=== PATIENT | male | born 1980 | race Asian ===

== ENCOUNTER 2022-12-10 08:39 | Emergency (ER) | payer OTHER, SELFPAY ==
--- NOTE | ~2022-12-10 | XR_ITS ---
EXAMINATION: XR WRIST, LEFT CLINICAL INFORMATION: Injury to left breast COMPARISON: None available. TECHNIQUE: PA, lateral, and oblique views of the left wrist. FINDINGS: The bones are intact. No fracture. Alignment is anatomic with normal joint spaces. No erosions or abnormal soft tissue calcifications. XR/XR wrist LT min 3V IMPRESSION: No acute bony abnormality.
[2022-12-10 08:44] VITALS: BP 135/87; PULSE 74; RESP 16; TEMP 36.1; O2SAT 97; BMI 29.0
--- NOTE | 2022-12-10 09:28 | ED.EXTPRO ---
HPI - Extremity Problem General Chief complaint: Extremity Injury, Upper Stated complaint: ? broken wrist Time Seen by Provider: 12/10/22 09:18 Source: patient and RN notes reviewed Mode of arrival: ambulatory Limitations: no limitations History of Present Illness HPI Narrative: This is a 42-year-old male, with no known past medical history, presenting to emergency department for evaluation of left wrist pain x3 weeks. Patient denies any recent trauma or injury however has noticed increasing pain and some numbness and tingling into his right thumb and right 2nd finger. Patient reports that over the weekend he felt a snapping sensation while he was asleep which woke him up and has had worsening pain in his left breast. He has been using a wrist splint which has been providing him with some relief. Denies history of similar symptoms in the past. No numbness or tingling going up into his left arm. 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 No other complaints or concerns at this time. MD Complaint: extremity pain and extremity swelling Onset (ago): week(s) Pain Consistency: constant Location: left Quality: stabbing Radiation: distal Relieving factors: immobilization Exacerbating factors: range of motion Associated symptoms: denies other symptoms Related Data Previous Rx's Medication Instructions Recorded ibuprofen 600 mg tablet 600 mg PO Q6H PRN pain #30 tabs 12/10/22 Allergies Allergy/AdvReac Type Severity Reaction Status Date / Time No Known Allergies Allergy Verified 12/10/22 08:46 Review of Systems Review of Systems: Constitutional: No Weight loss, No Fever, No Chills ENT/Mouth: No Ear Pain, No Nasal Congestion, No Sinus Pain, No Hoarseness, No sore throat, No Rhinorrhea, No Swallowing Difficulty Cardiovascular: No Chest Pain, No SOB Respiratory: No Cough, No Sputum, No Wheezing Gastrointestinal: No Nausea, No Vomiting, No Diarrhea, No Constipation, No Abdominal pain Genitourinary: No Dysuria, No Urinary Frequency, No Hematuria, No Urinary Incontinence/retention, No Urgency, No Flank Pain Musculoskeletal: No joint pain, No Myalgias, No Joint Swelling Skin: No Skin Lesions, No rash Neuro: No Weakness, No Numbness, No Paresthesias PMFSH Social History Social History Advance Directives: No Advance Directives Information Provided: Yes Physical Exam Vital Signs: Vital Signs: Last Vital Signs Temp 97 F 12/10/22 08:44 Pulse 65 12/10/22 11:02 Resp 18 12/10/22 11:02 BP 108/76 12/10/22 11:02 Pulse Ox 95 12/10/22 11:02 O2 Del Method Room Air 12/10/22 11:02 BMI result Body Mass Index 29.0 General: Awake, alert, and oriented X3. No acute distress. HEENT: Normal inspection CVS: Normal heart rate and rhythm. Pulses normal. Respiratory: No respiratory distress Skin: Warm, dry, no rashes noted to exposed skin. Normal skin color. Normal skin turgor. Extremities: Left wrist no obvious deformity or swelling, with TTP over the distal radius. Able to make a fist. Negative Tinels sign, +Prayer sign. Neuro: Oriented X 3. No motor deficit. No sensory deficit. Course Reevaluation(s) Reevaluation #1: X-rays reviewed with no acute bony abnormality seen. Patient's symptoms consistent with carpal tunnel syndrome, advised patient to continue wearing wrist splint, ice, rest, and follow up primary care physician. Also given prescription for ibuprofen to help with anti inflammatory effect. Patient understands and agrees with plan. Time: 11:07 Medical Decision Making Medical Decision Making MDM Narrative: This is a 42-year-old male presenting to the emergency department for evaluation of atraumatic left wrist pain the last 3 weeks. On examination, vital signs are within normal limits. Left wrist with no obvious deformity or swelling, tenderness to palpation over the right distal radius. Radial pulses 2+ bilaterally. Plan: X-ray left wrist Differential Diagnosis Differential Diagnoses: The differential diagnosis associated with the presentation includes Wrist fracture, sprain, strain, carpal tunnel, tendinitis Discharge Plan Discharge Clinical Impression: Left wrist pain Patient Disposition: Home, Self-Care Instructions: Wrist Injury (ED) Additional Instructions: Your x-rays performed today showed no broken bones. Please rest, ice, and wear wrist splint. Gentle stretching will help with pain. Take prescribed medication as directed. Follow-up with the primary care physician, as you may need to see Physical therapy for further treatment of your pain and symptoms. If your symptoms do not improve all taking ibuprofen please follow-up with [facility] as they may help facilitate with further testing, treatment, and physical therapy. If any new or worsening symptoms occur please return for re-evaluation. Prescriptions: New ibuprofen 600 mg tablet 600 mg PO Q6H PRN (Reason: pain) Qty: 30 0RF Referrals: [facility] [Provider Group] Stand Alone Forms: Work/School Release
[2022-12-10 11:02] VITALS: BP 108/76; PULSE 65; RESP 18; O2SAT 95
== END 2022-12-10 11:15 | disposition home or self-care (01) ==
PROVIDERS: Emergency Provider Emergency Medicine
DX: M25.532 Pain in left wrist (principal)
CPT/HCPCS: 73110; 99283

== ENCOUNTER 2024-08-09 15:20 | Emergency (ER) | payer OTHER, SELFPAY ==
[2024-08-09 15:55] VITALS: BP 136/84; PULSE 83; RESP 17; TEMP 36.6; O2SAT 98; BMI 29.9
--- NOTE | 2024-08-09 16:03 | ED_ITS ---
HPI - Allergic Reaction General Chief complaint: Allergic Reaction Stated complaint: rash on stomach & legs Time Seen by Provider: 08/09/24 16:03 Source: patient and RN notes reviewed Mode of arrival: ambulatory Limitations: no limitations History of Present Illness ED Provider: Josefa Tinsley PA-C HPI narrative: This is a 43-year-old male who presents emergency department for evaluation of itchy rash to arms, leg, and torso since april. Patient reports that he has been to multiple emergency department without any formal diagnosis. He has not been seen by a motor teacher. Denies any new lotions, soaps, detergents, or medications. He has been prescribed topical medications which does not alleviate his symptoms. Denies any chest pain, shortness for breath, difficulty breathing, or difficulty swallowing. Rash is itchy. No other complaints or concerns at this time. MD complaint: hives Onset (ago): month(s) Exposure: unknown Symptoms: rash and itching Severity: moderate Treatment prior to arrival: none Previous Allergic Reaction History: none Related Data Previous Rx's ?Medication ?Instructions ?Recorded ibuprofen 600 mg tablet 600 mg PO Q6H PRN pain #30 tabs 12/10/22 cetirizine 10 mg capsule (All Day 10 mg PO DAILY 30 days #30 caps 08/09/24 Allergy (cetirizine)) famotidine 20 mg tablet (Pepcid) 20 mg PO BID 2 weeks #28 tabs 08/09/24 prednisone 20 mg tablet 40 mg (2 x 20 mg) PO DAILY 5 days 08/09/24 #10 tabs Allergies Allergy/AdvReac Type Severity Reaction Status Date / Time No Known Allergies Allergy Verified 08/09/24 15:59 Review of Systems 2 Review of Systems: Yes all other systems are reviewed and are negative [facility] Social History Social History Advance Directives: No Advance Directives Information Provided: No Do you have a plan to hurt others: No Plan Physical Exam ED Vital Signs: Vital Signs - 24 hr 08/09/24 15:55 08/09/24 16:29 Temperature 98 F 98 F Pulse Rate 83 83 Respiratory Rate 17 17 Blood Pressure 136/84 136/84 Pulse Oximetry 98 98 BMI result Body Mass Index 29.9 Const Other: General: Awake, alert, and oriented X3. No acute distress. HEENT: Normal inspection CVS: Normal heart rate and rhythm. Pulses normal. Respiratory: No respiratory distress Skin: See below Extremities: Normal to inspection Neuro: Oriented X 3. No motor deficit. No sensory deficit. Patient with erythematous macular papular rash, on torso, and flexor surface of bilateral upper arms. Mild excoriations present. Rash is blanchable. No surrounding warmth. Medical Decision Making Medical Decision Making MDM Narrative: This is a 43-year-old male who presents emergency department with complaints of itchy rash to torso as well as bilateral upper arms. Rash has been present for several months. On arrival, vital signs within normal limits. He has no chest pain, shortness breath, difficulty swallowing or breathing. He has trialed topical prescription medications prescribed to him at other emergency department without follow-up with Dermatology. Lungs are clear to auscultation bilaterally. No difficulty swallowing. Will trial course of Pepcid, cetirizine, and prednisone. Also given referral to [facility]. Given strict return precautions. He understands agrees with plan. Patient stable for discharge Differential Diagnosis Differential Diagnoses: The differential diagnosis associated with the presentation includes Atopic dermatitis, cellulitis, folliculitis, psoriasis Discharge Plan Discharge Clinical Impression: Rash Patient Disposition: Home, Self-Care Instructions: Acute Rash (ED) Additional Instructions: You were seen in the emergency department due to a itchy rash. It is unclear what is causing you to have this rash however we are going to treat the symptoms with several medications. Prednisone is a steroid, take as prescribed. We are also going to place you on a allergy medication, you can take this once a day. We are giving you a 30 day supply. I am also prescribing you Pepcid, take this for the next 2 weeks. This can help with the inflammatory process. I am giving you a referral to a motor teacher, please call tomorrow to make an appointment. They can do further testing to figure out what exactly this rash is. If any new or worsening symptoms occur including but not limited to severe chest pain, shortness for breath, difficulty swallowing, please seek emergent care. [facility] Address: [address] [place] [address] [address], [place], [place] [phone] Prescriptions: New prednisone 20 mg tablet 40 mg PO DAILY 5 Days Qty: 10 0RF famotidine [Pepcid] 20 mg tablet 20 mg PO BID 14 Days Qty: 28 0RF All Day Allergy (cetirizine) 10 mg capsule 10 mg PO DAILY 30 Days Qty: 30 0RF No Action ibuprofen 600 mg tablet 600 mg PO Q6H PRN (Reason: pain) Qty: 30 0RF Interventions: ED Discharge Assessment Last Done: 08/09/24 16:29 Discharge Date/Time: 08/09/24 16:29 Print Language: Setswana
[2024-08-09 16:29] VITALS: BP 136/84; PULSE 83; RESP 17; TEMP 36.6; O2SAT 98
== END 2024-08-09 16:29 | disposition home or self-care (01) ==
PROVIDERS: Emergency Provider Emergency Medicine
DX: L50.0 Allergic urticaria (principal); R21 Rash and other nonspecific skin eruption
CPT/HCPCS: 99282; 99283

== ENCOUNTER 2024-12-14 08:10 | Outpatient (AMB) | payer OTHER, SELFPAY ==
--- NOTE | 2024-12-14 08:16 | A.OFFPC_ITS ---
Vital Signs 12/14/24 08:24 Height 5 ft 6 in Weight 175 lb 2 oz BMI 28.3 BP 102/67 Blood Pressure Location Lt brachial Position Sitting Respiration 12 Pulse 65 Pulse Source Pulse Oximeter Temp 97.5 F Temp Source Oral Pulse Oximetry (%) 95 Oxygen Delivery Method Room Air Intake Visit Reasons: CPE Intake Note: New patient to establish care and cpe. 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 Allergies No Known Allergies Allergy (Verified 12/14/24 08:17) Medication List - Last Reconciled 12/14/24 by TRAVIS Torres-IRA cetirizine (All Day Allergy (cetirizine)) 10 mg PO DAILY 30 days Tobacco use date assessed: 12/14/24 Dental Screening Dental Screen Date: 12/14/24 Did you have a dental visit in the last 12 months?: No Did you have a dental problem in the last 6 months where you did not have access to dental care?: No Was dental information given to patient?: Patient has dentist HPI HPI Comments History of Present Illness Details 44 y/o M with seasonal allergies Surgery: None Family hx: Denies any signifcant family hx. 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 Every so often has recurrence; if in sun too long it comes back. He thinks this is Alpha-gal Syndrome with rashes linked to sun and specific foods. Though it has not been formerly diagnosed. He was referred to Derm but did not fu. Family History - Denies significant family history incl uding premature deaths, cancer, or heart disease. 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 - Resides with significant other and chi ldren. - Denies substance use. - Reports feeling safe at home. - No significant changes in vision but w ears glasses; last eye exam approximately a year ago. Health Maintenance - Discussed obtaining records of previou s tetanus vaccination from service. - Patient agreed to labs for diabetes sc reening. - Discussed potential for Lyme disease t esting. Review of Systems - Skin: Reports recurrent rashes; denies dermatology follow-up. - Respiratory: Denies significant respir atory issues. - Cardiovascular: Denies known heart dis ease. - Gastrointestinal: Reports abdominal di scomfort, interested in gastrointestinal evaluation. - Neurological: Denies neurological symp toms. - Ocular: Wears glasses; denies signific ant changes. - Musculoskeletal: Denies aches; mild at hlete's foot mentioned on right foot. - General: Denies recent serious illness es. Physical Exam General: Well developed, well nourished, in no acute distress. Appears stated age. Head: Normocephalic, atraumatic. Rash noted on the scalp. Eyes: Pupils are equal, round and reactive to light and accommodation. Conjunctivae are clear. Vision grossly normal. . Ears: L TM with scarring (reports childhood rupture) mild erythema; R TM intact w/ clouding, EAC clear bilat Nose: Patent, without discharge. Neck: Supple, no adenopathy or thyromegaly. Breast: Edu on SBE. Lungs: Clear to auscultation bilaterally. No rales, rhonchi or wheeze noted. Good air flow in all morrissey. Heart: Regular rate and rhythm. No murmurs, click, rubs or gallops are noted. Abdomen: Bowel sounds present in all quadrants. The abdomen is soft, nontender, with no masses or organomegaly noted. No hernias are noted. : Deferred. Reviewed LATONIA & recommendations Pulses: Peripheral pulses are equal and palpable bilaterally. Extremities: No clubbing, cyanosis nor edema is noted. Athlete's foot noted on the right foot. Neurologic: Gait and station normal. Cranial Nerves 2-12 intact. Motor strength grossly symmetrical and intact. No sensory loss. Balance normal. Skin: Rash noted on the scalp and abdomen. No other rashes, ulcers, or lesions noted. Turgor is good. Skin color is good. Hair and nails are without abnormalities. On scalp is dry patches of skin that resemble psoriasis; he has a flat pink rash to his mid abd. Psych: Normal eye contact, affect and mood appropriate, and normal interactions. Patient is alert and appropriate to context. Results Pending Discussion Notes During our consultation, we explored the patient's concern of Alpha-gal Syndrome following a tick bite, which has led to intermittent rashes triggered by sun exposure and dietary factors. I discussed referring the patient to dermatology for specialized assessment and management. We also agreed on obtaining lab work today, including diabetes screening and consideration for Lyme disease testing. The importance of safe home protocols, specifically around managing allergies, was emphasized. I recommended that the patient may follow up with us yearly for a regular wellness check and provided information on setting up the patient portal for easier access to lab results and appointments. Assessment and Plan 1. Rash - - Referral to dermatology for evaluation . 2. Seasonal Allergies - Continue Zyrte. 3. Health Maintenance Screening labs today Patient Instructions - Set up the patient portal at the front office developer for access to lab results and appointments. - Proceed with blood work today while in the office. - Follow the referral for dermatology to address skin issues. - Maintain allergy management as directe d. - Return for annual wellness visits for ongoing care. Consent Patient was informed and verbally consented to the use of an ambient scribe for clinic note documentation during this visit. An additional 20 minutes was spent addressing the problem(s) noted at todays visit. This includes time spent before the visit reviewing the chart, time spent during the visit, and time spent after the visit on documentation reviewing laboratory results, diagnostic imaging, medications, performing a medically necessary evaluation, counseling on diagnoses, care coordination, ordering appropriate tests, ordering appropriate medications, review of tests performed by other providers, reporting test results with the patient, communication with other healthcare providers. [facility] Medical History (Updated 12/14/24 @ 08:47 by Christen Catalan [facility]) History of perforation of tympanic membrane Tick bite No pertinent past medical history No pertinent family history Surgical History (Updated 12/14/24 @ 08:30 by Roberta Jiang MA) No pertinent past surgical history Social History (Updated 12/14/24 @ 08:26 by Roberta Jiang MA) Household Members: Spouse, Family and Children Both parents involved: No Caregiver staying overnight: No Housing: House Are you a primary career developer to a significant other at home: Yes Do you presently have visiting nurse or other home services: No 75 years or older and lives alone: No Alcohol intake: never Patient Tobacco Use Status: Never used Tobacco e-Cigarette/Vaping Use: Never Used Second Hand Smoke Exposure: No service: No Current occupational status: employed 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 1. Little interest or pleasure in doing things: nearly every day 2. Feeling down, depressed, or hopeless: several days 3. Trouble falling or staying asleep, or sleeping too much: several days 4. Feeling tired or having little energy: several days 5. Poor appetite or overeating: several days 6. Feeling bad about yourself - or that you are a failure or have let yourself or your family down: nearly every day 7. Trouble concentrating on things, such as reading the newspaper or watching television: more than half the days 8. Moving or speaking so slowly that other people could have noticed. Or the opposite - being so fidgety or restless that you have been moving around a lot more than usual: not at all 9. Thoughts that you would be better off or of hurting yourself in some way: not at all Total score: 12 Depression Screening Interpretation: Positive Depression Screening Done: Yes 16794 - PHQ-9 Billing: Yes Source: Developed by Drs. Rachid Sawant, Jessica Pryor, Deo Lindsey and colleagues, with an educational jeancarlos from [employer] [employer]. Thrive Questionnaire Date Thrive assessed: 12/14/24 I am a: Patient What is your living situation today?: I have a steady place to live Within the past 12 months, did the food you bought not last and you didn't have the money to get more?: Never true Within the past 12 months, did you worry whether your food would run out before you got money to buy more?: Never true Do you have trouble paying for medicines?: No Do you have trouble getting transportation to medical appointments?: No Do you have trouble paying your heating and electricity bill?: No Do you have trouble taking care of your child, family member or friend?: No Do you have trouble with day-to-day activities such as bathing, preparing meals, shopping, managing finances, etc.?: No Are you currently unemployed and looking for a job?: No Are you interested in more education?: No Please select the resources that you would like help with: None Currently or been in a relationship where the following occur: No concerns reported THRIVE Score: 0 AUDIT C Alcohol Use Questionnaire (AUDIT-C) 1. How often do you have a drink containing alcohol?: Never 3. How often do you have six or more drinks on one occasion?: Never Total Score: 0 Score Reviewed/Action Taken: Yes MARIO ALBERTO-7 AMB Questionnaire MARIO ALBERTO-7 Date MARIO ALBERTO - 7 assessed: 12/14/24 Feeling nervous, anxious, or on edge: 0 = Not at all Not being able to stop or control worryin = Not at all Worrying too much about different things: 1 = Several days Trouble relaxin = Not at all Being so restless that it is hard to sit still: 0 = Not at all Becoming easily annoyed or irritable: 1 = Several days Feeling afraid as if something awful might happen: 1 = Several days Total MARIO ALBERTO-7 score (0-4 normal; 5-9 mild; 10-14 moderate; 15-21 severe): 3 Source: Developed by Drs. Rachid Sawant, Jessica Pryor, Deo Lindsey and colleagues, with an educational jeancarlos from [facility] [employer]. MARIO ALBERTO-7 Assessment Billing MARIO ALBERTO-7 Assessment Tool: MARIO ALBERTO-7 Assessment 45306 Physical exam (Primary Care) Vital Signs: Last Vital Signs Temp 97.5 F 12/14/24 08:24 Pulse 65 12/14/24 08:24 Resp 12 12/14/24 08:24 BP 102/67 12/14/24 08:24 Pulse Ox 95 12/14/24 08:24 Oxygen Delivery Method Room Air 12/14/24 08:24 BMI result Body Mass Index 28.3 Tobacco/Smoking Status: Tobacco use Status Tobacco use date assessed 12/14/24 12/14/24 08:18 Patient Tobacco Use Status Never used Tobacco 12/14/24 08:26 e-Cigarette/Vaping Use Never Used 12/14/24 08:26 Depression Screening Interpretation: Positive Thrive Assessment: Date of Thrive Assessment Date Thrive assessed 12/14/24 12/14/24 08:27 Currently or been in a relationship where the following occur: No concerns r eported Coding Level of Care Code New Pt Level 2 (55436) New Pt Prev Care 40-64y(43649) Diagnoses Encounter to establish care Z76.89 Seasonal allergies J30.2 Rash R21 Laboratory exam ordered as part of routine general medical examination Z00.00 Encounter for general adult medical examination with abnormal findings Z00.01 Additional Codes PHQ-9 - 55826 - PHQ-9 Billing: Yes ([id number]) MARIO ALBERTO-7 Assessment Billing - MARIO ALBERTO-7 Assessment Tool: MARIO ALBERTO-7 Assessment 86225 ([id number]) Assessment & Plan Assessment & Plan (1) Encounter to establish care: Code(s): Z76.89 - Persons encountering health services in other specified circumstances (2) Seasonal allergies: Code(s): J30.2 - Other seasonal allergic rhinitis Category: Medical (3) Rash: Code(s): R21 - Rash and other nonspecific skin eruption Category: Medical (4) Laboratory exam ordered as part of routine general medical examination: Code(s): Z00.00 - Encounter for general adult medical examination without abnormal findings Category: Medical (5) Encounter for general adult medical examination with abnormal findings: Onset Date: ~12/14/24 Code(s): Z00.01 - Encounter for general adult medical examination with abnormal findings Category: Medical Plan . Orders: Orders Comprehensive Met. Panel Today R21 - Rash and other nonspecific skin eruption, Z00.00 - Encounter for general adult medical examination without abnormal findings Hemoglobin A1c Today R21 - Rash and other nonspecific skin eruption, Z00.00 - Encounter for general adult medical examination without abnormal findings Microalbumin, Random (w Creat) Today R21 - Rash and other nonspecific skin eruption, Z00.00 - Encounter for general adult medical examination without abnormal findings PSA, Ultra Sensitive Today R21 - Rash and other nonspecific skin eruption, Z00.00 - Encounter for general adult medical examination without abnormal findings TSH reflex Free T4 Today R21 - Rash and other nonspecific skin eruption, Z00.00 - Encounter for general adult medical examination without abnormal findings Vitamin B12 and Folate Today R21 - Rash and other nonspecific skin eruption, Z00.00 - Encounter for general adult medical examination without abnormal findings Lyme IgG/IgM w/reflex to WB Today R21 - Rash and other nonspecific skin eruption, Z00.00 - Encounter for general adult medical examination without abnormal findings Complete Blood Count no Diff Today R21 - Rash and other nonspecific skin eruption, Z00.00 - Encounter for general adult medical examination without abnormal findings Ferritin Today R21 - Rash and other nonspecific skin eruption, Z00.00 - Encounter for general adult medical examination without abnormal findings Lipid Panel Today R21 - Rash and other nonspecific skin eruption, Z00.00 - Encounter for general adult medical examination without abnormal findings Vitamin D 25-OH Total Today R21 - Rash and other nonspecific skin eruption, Z00.00 - Encounter for general adult medical examination without abnormal findings Referrals Dermatology Referral R21 - Rash and other nonspecific skin eruption Patient Instructions: Walk-In Care (Urgent Care): We Make it Easy Walk-in for urgent medical issues such as: ? Seasonal Allergies ? Insect Bites ? Cough ? Diarrhea ? Acute Asthma Attacks ? Back, Knee or Joint Pain ? Ear Infection ? Fever without a Rash ? Headaches ? Nausea ? Manuel Garcia Eye, Rash or Skin Irritation ? Sore Throat ? Sports Physicals ? Vomiting Most insurances are accepted. Patients do not need to be part of the [facility] to seek care at the walk-in clinic. Locations [address] [facility] [place] [address] ? [phone] [facility] Walk-In Care in [place] provides services to ages 18 and over. Open Friday-Friday: 8 a.m. to 5 p.m. and Friday: 9 a.m. to 3 p.m.* *Hours may vary due to staffing availability. To confirm Walk-In Care hours in [place], please call [phone]. [address] [place] [address] ? [phone] [facility] Walk-In Care in [place] provides services to ages 12 and over. Open Friday-Friday: 8 a.m. to 5 p.m. Hours may vary due to staffing availability. To confirm Walk-In Care hours in [place], please call [phone]. LABORATORY SERVICES: [facility] ? Primary Location [address] [place] [address] Friday through Friday 6:00 AM ? 5:00 PM Friday 7:00 AM ? 11:00 AM* [phone] The [facility] is centrally located near the front entrance of the Medical Center for easy outpatient access. Convenient parking is provided for outpatients. *Hours may vary due to staffing availability. To confirm Laboratory hours for any location, please call [phone]. Offsite Location For your convenience, we offer offsite laboratory draw stations at the following locations: [address] [place] [address] ? [facility] [address] [place] [address], [address], [place] Friday through Friday 7:30 AM ? 1:00 PM* [phone] *Hours may vary due to staffing availability. To confirm Laboratory hours for any location, please call [phone]. [place] ? [facility] [address] [facility] Friday through Friday 6:00 AM ? 3:30 PM* Friday 6:30 AM ? 3 PM* [phone] *Hours may vary due to staffing availability. To confirm Laboratory hours for any location, please call [phone] [place] [address] Friday through Friday 7:30 AM ? 4:00 PM* [phone] *Hours may vary due to staffing availability. To confirm Laboratory hours for any location, please call [phone] [place] [address] Friday through 9:00 AM ? 4:00 PM* *Hours may vary due to staffing availability. To confirm Laboratory hours for any location, please call [phone]. Appointments are not necessary. Walk-ins are welcome. Like all the departments throughout the [facility], our Lab undergoes frequent reviews to ensure the quality and accuracy of test results, and our staff takes special pride in its status as a nationally accredited facility. Patient Portal: ONE PATIENT. ONE RECORD. BETTER CARE. [facility] has a fully integrated, cutting- edge mobile electronic health information system that has revolutionized the way we care for our patients and manage our organization. This system improves communication and coordination enabling us to provide safe, higher-quality care, and an overall positive experience for staff and patients. Our first priority, as always, is to deliver the highest quality care possible. The system is running in the background supporting that priority. This portal is for all [facility] services and practices. If you are experiencing any technical difficulties with enrolling or logging into the Patient Portal please complete the [facility] Patient Portal Technical Support Form. [facility] now offers a new secure on-line interactive tool for patients to review their health information ? ?Patient Portal. This interactive web portal will enable patients and their families to take an active role in their care by providing easy, secure access to their health information via the internet. The Patient Portal provides patients with instant access to their health information, including laboratory results, medications, allergies, demographic information, visit history, and more. In addition to managing their own care, parents and health care proxies with authorized consent will appreciate the ability to access the records of those individuals for whom they provide care. Please note: if you wish to gain access (Proxy) to another patient?s portal, you will be required to come to the Medical Records Department in person at [facility]. Both the patient giving proxy access and the proxy will need to provide photo identification and complete the appropriate authorization. The Patient Portal also allows track their appointments online. The [facility] Patient Portal also saves patients time by allowing them to submit updates to their demographic and contact information prior to their visits. Portal email notifications will also alert patients to any new activity on their portal, such as test results and new appointments. In order to initially enroll in the [facility] Patient Portal, you will need to enter some required information including the following: * your [facility] Medical Record number * your personal home email address * name * date of Please note: In order to enroll in the [facility] Patient Portal, we need to have your email address on file in your electronic medical record. ?The email address needs to be specific for one person (yourself) in order for your Portal enrollment to be successful. ?You can update your email address in person with our Registration staff when you are registering for a hospital visit. ?Otherwise, you will need to come to the Health Information Management (Medical Records) Department at [facility]. ?We are open from Friday ? Friday from 7:30 a.m. ? 4:30 p.m. ?You will be required to present a photo id. Once you have successfully enrolled in the Patient Portal, you will receive a one-time user id and password for the Portal, sent to your email address. ?This will allow you to log into the Patient Portal within 99 hrs and reset your own logon id and password, and define personal security questions. ?Once your permanent login and password have been set, you can log into the [facility] Patient Portal at any time via the blue button above or from the Portal Logon button on any page of the [facility] website. [facility] encourage all of our patients to enroll in Patient Portal as it presents a valuable opportunity for patients and their families to actively participate in their care and stay healthy Welcome to [facility]. ?We look forward to working with you. Health screenings for men You should visit your health care provider regularly, even if you feel healthy. The purpose of these visits is to: Screen for medical issues Assess your risk for future medical problems Encourage a healthy lifestyle Update vaccinations and other preventive care services Help you get to know your provider in case of an illness Information Even if you feel fine, you should still see your provider for regular checkups. These visits can help you avoid problems in the future. For example, the only way to find out if you have high blood pressure is to have it checked regularly. High blood sugar and high cholesterol level also may not have any symptoms in the early stages. Simple blood tests can check for these conditions. There are specific times when you should see your provider or receive specific health screenings. The [place] Preventive Services Task Force publishes a list of recommended screenings. Below are screening guidelines for men ages 40 to 64. BLOOD PRESSURE SCREENING Have your blood pressure checked at least once every year. Watch for blood pressure screenings in your area. Ask your provider if you can stop in to have your blood pressure checked. Ask your provider if you need your blood pressure checked more often if: You have diabetes, heart disease, kidney problems, or are overweight or have certain other health conditions You have a first-degree relative with high blood pressure You are Black Your blood pressure top number is from 120 to 129 mm Hg, or the bottom number is from 70 to 79 mm Hg If the top number is 130 mm Hg or greater or the bottom number is 80 mm Hg or greater, this is considered stage 1 hypertension. Schedule an appointment with your provider to learn how you can lower your blood pressure. Effects of age on blood pressure CHOLESTEROL SCREENING Cholesterol screening should begin at age 35 for men with no known risk factors for coronary heart disease. Repeat cholesterol screening should take place: Every 5 years for men with normal cholesterol levels More often if changes occur in lifestyle (including weight gain and diet) More often if you have diabetes, heart disease, kidney problems, or certain other conditions COLORECTAL CANCER SCREENING If you are under age 45, talk to your provider about getting screened. You may need to be screened if you have a strong family history of colon cancer or polyps. Screening may also be considered if you have risk factors such as a history of inflammatory bowel disease or polyps. If you are age 45 to 75, you should be screened for colorectal cancer. There are several screening tests available: A stool-based fecal occult blood (gFOBT) or fecal immunochemical test (FIT) every year A stool sDNA test every 1 to 3 years Flexible sigmoidoscopy every 5 years or every 10 years with stool testing FIT done every year CT colonography (virtual colonoscopy) every 5 years Colonoscopy every 10 years You may need a colonoscopy more often if you have risk factors for colorectal cancer, such as: Ulcerative colitis A personal or family history of colorectal cancer A history of growths in your colon called adenomatous polyps DENTAL EXAM Go to the dentist once or twice every year for an exam and cleaning. Your dentist will evaluate if you have a need for more frequent visits. DIABETES SCREENING All adults who do not have risk factors for diabetes should be screened starting at age 35 and repeated every 3 years. If you have other risk factors for diabetes, such as a first degree relative with diabetes, overweight or obesity, high blood pressure, prediabetes, or a history of heart disease, you may be tested more often. If you are overweight and have other risk factors, such as high blood pressure and are planning to become , screening is recommended. EYE EXAM Have an eye exam every 2 to 4 years ages 40 to 54 and every 1 to 3 years ages 55 to 64. Your provider may recommend more frequent eye exams if you have vision problems or glaucoma risk. Have an eye exam that includes an examination of your retina (back of your eye) at least every year if you have diabetes. IMMUNIZATIONS Commonly needed vaccines include: Flu shot: get one every year COVID-19 vaccine: ask your provider what is best for you Tetanus-diphtheria and acellular pertussis (Tdap) vaccine: have as one of your tetanus-diphtheria vaccines if you did not receive it as an adolescent Tetanus-diphtheria: have a booster (or Tdap) every 10 years Varicella vaccine: receive 2 doses if you never had chickenpox or the varicella vaccine and were born in 1980 or after Hepatitis B vaccine: receive 2, 3, or 4 doses, depending on your exact circumstances, if you did not receive these as a child or adolescent, until age 59 Shingles (herpes zoster) vaccine: at or after age 50 Ask your provider if you should receive other immunizations, especially if you have certain medical conditions, such as diabetes or are at increased risk for some diseases such as pneumonia. INFECTIOUS DISEASE SCREENING Screening for hepatitis C: all adults ages 18 to 79 should get a one-time test for hepatitis C. Screening for human immunodeficiency virus (HIV): all people ages 15 to 65 should get a one-time test for HIV. Depending on your lifestyle and medical history, you may need to be screened for infections such as syphilis, chlamydia, and other infections. LUNG CANCER SCREENING You should have an annual screening for lung cancer with low-dose computed tomography (LDCT) if: You are age 50 to 80 years AND You have a 20 pack-year smoking history AND You currently smoke or have quit within the past 15 years OSTEOPOROSIS SCREENING If you are age 50 to 64 and have risk factors for osteoporosis, you should discuss screening with your provider. Risk factors can include long-term steroid use, low body weight, smoking, heavy alcohol use, having a fracture after age 50, or a family history of hip fracture or osteoporosis. Osteoporosis PHYSICAL EXAM All adults should visit their provider from time to time, even if they are healthy. The purpose of these visits is to: Screen for diseases Assess risk of future medical problems Encourage a healthy lifestyle Update vaccinations and other preventive care services Maintain a relationship with a provider in case of an illness Your height, weight, and body mass index (BMI) should be checked at every exam. During your exam, your provider may ask you about: Depression and anxiety Diet and exercise Alcohol and tobacco use Safety, such as use of seat belts and smoke detectors Your medicines and risk for interactions PROSTATE CANCER SCREENING If you're 55 through 69 years old, before having the test, talk to your provider about the pros and cons of having a PSA test. Ask about: Whether screening decreases your chance of dying from prostate cancer. Whether there is any harm from prostate cancer screening, such as side effects from testing or overtreatment of cancer when discovered. Whether you have a higher risk of prostate cancer than others. If you are age 55 or younger, screening is not generally recommended. You should talk with your provider about if you have a higher risk for prostate cancer. Risk factors include: Having a family history of prostate cancer (especially a brother or father) Being If you choose to be tested, the PSA blood test is repeated over time (yearly or less often), though the best frequency is not known. Prostate examinations are no longer routinely done on men with no symptoms. Prostate cancer SKIN EXAM Your provider may check your skin for signs of skin cancer, especially if you're at high risk. People at high risk include those who have had skin cancer before, have close relatives with skin cancer, or have a weakened immune system. TESTICULAR EXAM The [place] Preventive Services Task Force (USPSTF) now recommends against performing testicular self-exams. Doing testicular self-exams has been shown to have little to no benefit.
[2024-12-14 08:24] VITALS: BP 102/67; PULSE 65; RESP 12; TEMP 36.4; O2SAT 95; BMI 28.3
== END 2024-12-14 08:42 | disposition home or self-care (01) ==
LOC: HO.HMCFM 08:10
PROVIDERS: PCP Nurse Practitioner Family; Visit Provider Nurse Practitioner Family
DX: Z00.00 Encounter for general adult medical examination without abnormal findings (principal); J30.2 Other seasonal allergic rhinitis; R21 Rash and other nonspecific skin eruption; Z76.89 Persons encountering health services in other specified circumstances

== ENCOUNTER → 2024-12-14 08:10 | Outpatient (BNVA) | payer OTHER, SELFPAY | PROVIDERS: PCP Nurse Practitioner Family; Visit Provider Nurse Practitioner Family | DX: Z00.01 Encounter for general adult medical examination with abnormal findings (principal); J30.2 Other seasonal allergic rhinitis; R21 Rash and other nonspecific skin eruption; Z76.89 Persons encountering health services in other specified circumstances | CPT/HCPCS: 96127 ==